=== PATIENT | female | born 1975 | race Two or more races ===

== ENCOUNTER 2019-01-27 11:34 | Emergency (ER) | payer MEDICAID, OTHER ==
[~2019-01-27] VITALS: Ht 152.4 cm; Wt 65.8 kg
[2019-01-27 11:54] VITALS: BP 135/85
== END 2019-01-27 13:07 | disposition home or self-care (01) ==
LOC: ER 11:39
DX: H66.93 Otitis media, unspecified, bilateral (principal)

== ENCOUNTER 2021-02-09 19:16 | Emergency (ER) | payer MEDICAID ==
[~2021-02-09] VITALS: Ht 149.9 cm; Wt 63.5 kg
[2021-02-09 19:19] VITALS: BP 170/102
== END 2021-02-09 20:12 | disposition left against medical advice (07) ==
LOC: ER 19:19
DX: H92.01 Otalgia, right ear (principal); Z53.21 Procedure and treatment not carried out due to patient leaving prior to being seen by health care provider